=== PATIENT | male | born 1995 | race Caucasian/White ===

== ENCOUNTER → 2021-02-07 17:50 | Outpatient (CLI) | payer BC, SELFPAY | PROVIDERS: Visit Provider Nurse Practitioner | DX: U07.1 COVID-19 (principal) | CPT/HCPCS: C9803; U0003; U0005 ==

== ENCOUNTER 2022-03-15 14:27 | Emergency (ER) | payer BC, SELFPAY ==
[2022-03-15 14:35] VITALS: BP 141/86; PULSE 112; RESP 19; TEMP 37.6; O2SAT 98; BMI 22.9
--- NOTE | 2022-03-15 15:17 | EXP.UTC ---
Discharge Plan Disposition Patient Disposition: Home, Self-Care Condition: Good Referrals Follow up/Referrals: Provider,Referral, [Primary Care Provider] - See instructions Activity Restrictions/Add. Instructions Additional Instructions/Restrictions: *Monitor Temp, Over the counter Motrin or Tylenol as directed/as needed Tylenol every 4 hours and Motrin every 6 hours (as long as your family doctor has told you that you can take it) for fever or pain. and straight to ER if unable to lower temp less than 101.0 after medication given *Warm salt water gargles may help to soothe the throat *Throat Lozenges? *Warm fluids like tea with honey may help to soothe the throat? *Sleep elevated *Humidifier/Vaporizer Your throat swab was sent for culture. Those results are typically sent to your primary care. Be sure to follow up in 2-3 days with your family doctor/primary care physician if no improvement so they can review those result and treat if necessary. If you don?t have a primary care doctor, I recommend you get one but in the mean time, you will have to return to a walk in clinic Follow up IMMEDIATELY for new or worsening symptoms or no Noticeable improvement over the next 48-72 hours. 911 for difficulty breathing or swallowing You were tested for today for Upper Respiratory Panel with COVID19 your test result should be back in the next 24-48 hours, you may Check your results on the [facility] [employer] [facility] Portal Clinical Impressions Clinical Impression: Viral syndrome Stand Alone Forms Stand Alone Forms: Work/School Release Instructions Patient Instructions: DI for Viral Syndrome Discharge ED Provider: Yesika Greene [facility] [place] General Stated complaint: fever,chills,body aches Mode of Arrival: Ambulatory Source of Information: Patient Limitations: No Limitations Time Seen by Provider: 03/15/22 15:17 Description of Symptoms (Recalled from Triage Doc. by RN): PATIENT C/O HEADACHE, CHILLS, AND BODY ACHES SINCE THIS MORNING HEENT Symptoms (Recalled from RN notes): Yes Resp Symptoms (Recalled from RN notes): No Skin Symptoms (Recalled from RN notes): No MS Symptoms (Recalled from RN notes): No Functional Status (Recalled from RN notes): WNL History of Present Illness Provider Complaint: Patient states that he had flu about a month ago States that he woke up this morning with low grade fever, chills, and bodyaches and then started with headache States that feels like he did when he had the flu so he came in to get checked Related Data Allergies Allergy/AdvReac Type Severity Reaction Status Date / Time No Known Allergies Allergy Verified 03/15/22 14:54 Worker's Comp Is this a Worker's Comp case?: No [facility] Disclaimer: The information contained in this section may have been updated after the patient was seen, as this information can be updated by other users. Surgical History (Updated 03/15/22 @ 14:54 by Erin Ruiz RN) History of appendectomy Social History (Updated 03/15/22 @ 14:54 by Erin Ruiz RN) Smoking Status: Unknown if ever smoked alcohol intake: never current occupational status: employed Travel in the last 8 weeks: None ROS Obtained: Yes All systems reviewed & no additional complaints except as documented and Yes Systems reviewed as appropriate & no additional complaints except as documented Constitutional Constitutional: Reports system reviewed and no additional complaints, except as documented, Reports as per HPI, Reports body ache, Reports chills, Reports fever(s) and Reports headache(s) ENT Ears, Nose, Mouth, and Throat: Reports system reviewed and no additional complaints, except as documented, Reports as per HPI and Reports headache(s) Cardiovascular Cardiovascular: Reports system reviewed and no additional complaints, except as documented and Reports as per HPI Respiratory Respiratory: Reports system reviewed and no additional complaints, except as
[2022-03-15 15:32] LABS: UTC Strep Screen (Rapid) Negative (Negative)
[2022-03-15 15:45] VITALS: BP 141/86; PULSE 112; RESP 19; TEMP 37.6; O2SAT 98
[2022-03-15 16:43] LABS: Influenza A, PCR Not Detected (NotDetected); Influenza B, PCR Not Detected (NotDetected)
[2022-03-15 18:13] LABS: Coronavirus 19, PCR Detected (NotDetected)
== END 2022-03-15 15:47 | disposition home or self-care (01) ==
PROVIDERS: Emergency Provider Nurse Practitioner
DX: R50.9 Fever, unspecified (principal); R52 Pain, unspecified; B34.9 Viral infection, unspecified
CPT/HCPCS: 87880; 99212; C9803; G0463; U0003; U0005

== ENCOUNTER 2022-11-01 21:31 | Observation (INO) | payer BC, SELFPAY ==
--- NOTE | 2022-11-01 21:33 | ECG_ITS ---
APPROVED REPORT Exam: Resting ECG HR:90 bpm ECG Measurements Heart Rate 90 AXES DE 133 P 76 QRSd 103 QRS 53 QT 335 T 60 QTc 383 Conclusion SINUS RHYTHM WITH SINUS ARRHYTHMIA Incomplete RBBB Left atrial abnormality BORDERLINE ECG UNCONFIRMED REPORT Electronically signed by : Endy Flowers MD 11/03/2022 07:35:35
[2022-11-01 21:40] VITALS: BP 137/85; PULSE 72; RESP 24; TEMP 36.7; O2SAT 100; BMI 22.9
--- NOTE | 2022-11-01 21:41 | CT_ITS ---
PROCEDURE INFORMATION: Exam: CTA Chest With Contrast CTA Abdomen and Pelvis With Contrast Exam date and time: 11/01/2022 9:55 PM Age: 27 years old Clinical indication: Pain; Chest pressure; Additional info: Chest pain rad to neck and abdomen TECHNIQUE: Imaging protocol: Computed tomographic angiography of the chest with contrast. Exam focused on the arteries. Computed tomographic angiography of the abdomen and pelvis with contrast. Exam focused on the arteries. 3D rendering (Not supervised by radiologist): MIP and/or 3D reconstructed images were created by the technologist. Radiation optimization: All CT scans at this facility use at least one of these dose optimization techniques: automated exposure control; mA and/or kV adjustment per patient size (includes targeted exams where dose is matched to clinical indication); or iterative reconstruction. Contrast material: ISOVUE; Contrast volume: 100 ml; Contrast route: INTRAVENOUS (IV); REPORTING DATA: Count of CT and Cardiac NM exams in prior 12 months: This patient has received 0 known CTs and 0 known cardiac nuclear medicine studies in the 12 months prior to the current study. COMPARISON: No relevant prior studies available. FINDINGS: VASCULATURE: Great vessels off aortic arch: There is a bovine configuration of the aortic arch. Pulmonary arteries: Normal. No pulmonary emboli. Aorta: See Great vessels off aortic arch finding. Celiac trunk and mesenteric arteries: No occlusion or significant stenosis. Renal arteries: No occlusion or significant stenosis. Right iliac arteries: No occlusion or significant stenosis. Left iliac arteries: No occlusion or significant stenosis. CHEST: Lungs: Nonspecific subpleural reticulation of the lung bases. Calcified granuloma in the peripheral right lower lobe (image 77 series 5). Pleural spaces: Unremarkable. No pneumothorax. No pleural effusion. Heart: Unremarkable. No cardiomegaly. No pericardial effusion. ABDOMEN AND PELVIS: Liver: There are low-density lesions in the liver which most likely reflect a combination of cysts and/or hemangiomas. The liver is otherwise unremarkable. Gallbladder and bile ducts: Unremarkable. No calcified stones. No ductal dilation. Pancreas: Unremarkable. No mass. No ductal dilation. Spleen: Unremarkable. No splenomegaly. Adrenal glands: Unremarkable. No mass. Kidneys and ureters: Unremarkable. No solid mass. No hydronephrosis. Stomach and bowel: Moderate distention of the stomach with ingested contents. Appendix: No evidence of appendicitis. Intraperitoneal space: Unremarkable. No free air. No significant fluid collection. Urinary bladder: There is moderate distention of the urinary bladder. Reproductive: Unremarkable as visualized. Lymph nodes: Unremarkable. No enlarged lymph nodes. Bones/joints: Unremarkable. No acute fracture. Soft tissues: Unremarkable. IMPRESSION: No evidence for dissection or aneurysm. No acute pathology identified in the chest, abdomen, or pelvis.
--- NOTE | 2022-11-01 21:44 | HMH.EDGENADL ---
Discharge Plan Disposition Patient Disposition: Admitted Chief Complaint: Chest Pain Clinical Impressions Clinical Impression: Chest pain, Abdominal pain Discharge ED Provider: Lukasz Valenzuela General Adult HPI General Chief complaint: Chest Pain Stated complaint: LUQ-chest pain Time Seen by Provider: 11/01/22 21:40 History of Present Illness HPI narrative: Patient is a 27-year-old male with no chronic medical conditions presents emergency department for evaluation of multiple complaints. Originally patient had chest pain that was radiating up into his shoulders, intermittently severe, however since then it is progressively traveled down the left side of his chest and is now in the left side of his abdomen. It is severe, intermittently stabbing quality. No vomiting or diarrhea. No other acute complaints at this time. Related Data Allergies Allergy/AdvReac Type Severity Reaction Status Date / Time No Known Allergies Allergy Verified 11/01/22 21:47 [facility] Disclaimer: The information contained in this section may have been updated after the patient was seen, as this information can be updated by other users. Surgical History (Updated 03/15/22 @ 14:54 by Erin Ruiz RN) History of appendectomy Social History (Updated 03/15/22 @ 15:37 by Yesika Greene APRN) Smoking Status: Never smoker alcohol intake: never current occupational status: employed Travel in the last 8 weeks: None ROS Obtained: Yes Systems reviewed as appropriate & no additional complaints except as documented Physical Exam General General appearance: alert and in distress Head Head exam: atraumatic and normocephalic Eye Eye exam: Present PERRL and EOMI ENT ENT exam: Present mucous membranes moist Neck Neck exam: Present normal inspection Chest Chest inspection: Present normal inspection and symmetric chest wall rise Respiratory Respiratory exam: Present normal lung sounds bilaterally; Absent respiratory distress Cardiovascular Cardiovascular exam: Present regular rate and normal rhythm Abdominal Exam Abdominal exam: Present soft, tenderness (Generalized, severe left upper quadrant) and guarding (Voluntary) Extremities Exam Extremities exam: Present normal inspection Neurological Exam Neurological exam: Present alert Psychiatric Psychiatric exam: Present normal affect Skin Skin exam: Present warm and dry Medical Decision Making Adam Inquiry Pt receiving controlled substance: No Vital Signs: 11/01/22 21:40 Temperature 98.1 F Temperature Source Oral Pulse Rate [Left] 72 Respiratory Rate 24 Blood Pressure [Right Arm] 137/85 Blood Pressure Mean [Right Arm] 102 Blood Pressure Source [Right Arm] Automatic Cuff Blood Pressure Position [Right Arm] Sitting 02 Sat by Pulse Oximetry 100 Lab Data Lab Results 11/01/22 21:34: WBC 10.7, RBC 5.17, Hgb 14.8, Hct 45.0, MCV 87.1, MCH 28.7, MCHC 32.9, RDW 12.4, Plt Count 333, MPV 6.9 L, Neut % (Auto) 57.8, Lymph % (Auto) 30.7, [place] % (Auto) 9.4 H, Eos % (Auto) 1.4, Baso % (Auto) 0.6, Neut # (Auto) 6.2, Lymph # (Auto) 3.3, [place] # (Auto) 1.0, Eos # (Auto) 0.2, Baso # (Auto) 0.1, Sodium 142, Potassium 4.0, Chloride 102, Carbon Dioxide 30, Anion Gap 14.0, BUN 14, Creatinine 1.10, Estimated Creat Clear 104, Estimated GFR 80, Est GFR ( Amer) 97, Glucose 108 H, Calcium 8.8, Total Bilirubin 0.3, AST 26, ALT 20, Alkaline Phosphatase 57, Troponin I < 0.01, Total Protein 7.7, Albumin 4.4, Globulin 3.3 H, Albumin/Globulin Ratio 1.3, Lipase 69 11/01/22 21:34 11/01/22 21:34 Orders (Tests/Meds): ED MEDICATIONS Generic Name Dose Route Start Last Admin Trade Name Freq PRN Reason Stop Dose Admin Acetaminophen 650 mg 11/01/22 23:56 Acetaminophen 325mg Tab PO 12/01/22 23:55 Q4HP PRN Fever or Mild Pain (1-3) Lactated Ringer's 1,000 mls @ 50 mls/hr 11/01/22 23:45 Lactated Ringer's 1000 Ml Bag IV 12/01/22 23:44
[2022-11-01 21:47] LABS: Basophils # 0.1 K/mm3 (0-0.2); Basophils % 0.6 % (0.1-2.0); Eosinophils # 0.2 K/mm3 (0.0-0.4); Eosinophils % 1.4 % (0.1-12.0); Hemoglobin 14.8 g/dL (14.1-18.0); Lymphocytes # 3.3 K/mm3 (0.7-4.5); Lymphocytes % 30.7 % (10-50); Mean Corpuscular HGB Conc 32.9 g/dL (31.8-35.4); Mean Corpuscular Hemoglobin 28.7 pg (27.0-31.2); Mean Corpuscular Volume 87.1 fl (80-94); Mean Platelet Volume 6.9 fl (7.4-10.4); Monocytes % 9.4 % (1.7-9.3); Neutrophils # 6.2 K/mm3 (1.8-7.8); Neutrophils % 57.8 % (37.0-80.0); Platelet Count 333 K/mm3 (142-424); Red Blood Count 5.17 M/mm3 (4.60-6.20); Red Cell Distribution Width 12.4 % (11.5-17.5); White Blood Count 10.7 K/mm3 (4.8-10.8)
--- NOTE | 2022-11-01 21:49 | PC.NURSE ---
Patient went to CT at this time.
[2022-11-01 21:54] LABS: Chloride 102 mmol/L (98-107); Sodium 142 mmol/L (136-145)
[2022-11-01 21:56] LABS: Blood Urea Nitrogen 14 mg/dl (9-20); Creatinine Clearance Estimated 104 mL/min (50-200); Estimated Glomerular Filt Rate 80 ml/min (>60); GFR (African American) 97 ML/MIN (>60)
[2022-11-01 21:57] LABS: Alanine Aminotransferase 20 U/L (12-78); Albumin Level 4.4 g/dl (3.5-5.0); Albumin/Globulin Ratio 1.3 (1.1-1.8); Alkaline Phosphatase 57 U/L (38-126); Aspartate Amino Transferase 26 U/L (17-59); Bilirubin,Total 0.3 mg/dl (0.2-1.3); Calcium 8.8 mg/dl (8.4-10.2); Carbon Dioxide 30 mmol/L (22.0-30.0); Globulin 3.3 g/dL (1.3-3.2); Glucose 108 mg/dl (74-100); Lipase 69 U/L (23-300); Total Protein,Serum 7.7 g/dl (6.3-8.2)
--- NOTE | 2022-11-01 21:59 | PC.NURSE ---
patient back in room from CT at this time.
--- NOTE | 2022-11-01 21:59 | PC.NURSE ---
Rounded on patient, no needs voiced at this time.
[2022-11-01 22:07] VITALS: BP 111/72; PULSE 82; RESP 13; O2SAT 97
[2022-11-01 22:15] LABS: Troponin I < 0.01 ng/ml (0.00-0.034)
[2022-11-01 22:30] VITALS: BP 119/84; PULSE 76; RESP 19; O2SAT 98
[2022-11-01 23:00] VITALS: BP 111/69; PULSE 72; RESP 16; O2SAT 97
[2022-11-01 23:30] VITALS: BP 105/61; PULSE 71; RESP 16; O2SAT 97
--- NOTE | 2022-11-01 23:44 | PC.NURSE ---
notified house of admit. Cleve mortensen, intractable abd pain; jacky baeza
[2022-11-01 23:47] LABS: Microscopic, Urine URINE MICROSCOPIC (MICROSCOPIC)
[2022-11-02 00:19] LABS: Appearance,Urine CLEAR (Clear); Bilirubin,Urine Negative (Negative); Blood, Urine Negative (Negative); Color,Urine YELLOW (Yellow); Glucose,Urine (UA) Negative (Negative); Ketones,Urine Negative (Negative); Leukocyte Esterase,Urine Negative (Negative); Nitrate,Urine Negative (Negative); Protein,Urine Negative (Negative); Urobilinogen,Urine 0.2 EU/dl (0.2)
[2022-11-02 00:27] LABS: RBC,Urine Occasional #/hpf (0-3)
--- NOTE | 2022-11-02 00:30 | PC.NURSE ---
0025 received phone report from Hoa rn/ED nurse. 27 yo male . diagnosis left upper quadrant abdominal pain.
[2022-11-02 00:33] VITALS: BP 105/61; PULSE 72; RESP 19; TEMP 36.6
[2022-11-02 01:00] VITALS: O2SAT 97
--- NOTE | 2022-11-02 01:02 | PC.NURSE ---
Patient arrived to floor via wheelchair at 01:00.
[2022-11-02 01:04] LABS: Troponin I < 0.01 ng/ml (0.00-0.034)
--- NOTE | 2022-11-02 01:21 | PC.NURSE ---
$1210, A POCKET KNIFE, AND A FLASHLIGHT LOCKED IN DRAWER AT THIS TIME
[2022-11-02 01:26] VITALS: BP 124/54; PULSE 68; RESP 18; TEMP 36.7; O2SAT 98; BMI 22.6
[2022-11-02 03:36] LABS: Troponin I < 0.01 ng/ml (0.00-0.034)
[2022-11-02 04:00] VITALS: BMI 22.6
--- NOTE | 2022-11-02 04:59 | PC.NURSE ---
HAS SLEPT SOUNDLY SINCE MEDS RECEIVED IN THE ED. DENIES PAIN. DENIES N/V/D. RESTING IN BED AT THIS TIME.
[2022-11-02 07:47] VITALS: BP 99/52; PULSE 72; RESP 16; TEMP 36.9; O2SAT 99
--- NOTE | 2022-11-02 10:21 | HMH.PHAINT1 ---
Pharmacy Intervention Comments: MEDICATION RECONCILIATION COMPLETE USING EXTERNAL PHARMACY FILL HISTORY.
--- NOTE | 2022-11-02 10:33 | EXP.HP ---
History of Present Illness *History of present illness: This dictation is actually a COMBINATION H&P and DISCHARGE SUMMARY: This 27-year-old white male developed pain in the left chest area with radiation up into the upper chest and in the left neck. The symptoms started a day prior to admission. There was no specific injury. He has not been exercising or causing any unusual straining in the abdomen chest region. Significant in the past history is Leiden factor V and a family history of blood clots. Also significant in the history is the fact that the patient has had COVID twice. The last episode was March 2022. He states that his cases of COVID were mild. He has a history of appendectomy. He was evaluated in the emergency room last evening and was admitted. He had CTA evaluation of the chest and abdomen. There were no significant findings. There was no evidence of pulmonary emboli. On exam today he indicates a fairly specific area in the lower rib cage area. He states he feels better and slept well through the night. [facility] Disclaimer: The information contained in this section may have been updated after the patient was seen, as this information can be updated by other users. Medical History (Updated 11/02/22 @ 10:59 by Diane Lorenzo MD) Costochondritis, acute Factor V Leiden Pleuritis Surgical History History of appendectomy Social History (Updated 11/02/22 @ 01:46 by Ilana Mena RN) Smoking Status: Never smoker alcohol intake: never substance use type: marijuana current occupational status: employed Travel in the last 8 weeks: None Review of Systems Review of Systems Review of systems:: pertinent systems reviewed and negative unless documented below Constitutional Constitutional: Reports system reviewed and no additional complaints, except as documented, Denies body ache(s), Denies chills, Denies fever(s), Denies lethargy and Denies weakness Eyes Eyes: Reports system reviewed and no additional complaints, except as documented ENT Ears, Nose, Mouth, and Throat: Reports system reviewed and no additional complaints, except as documented, Reports neck pain and Denies vertigo *Cardiovascular Cardiovascular: Reports chest pain, Reports chest pain at rest, Reports chest pain with activity (Notes the pain when he takes deep breaths or twists his upper body.), Denies dyspnea, Denies dyspnea on exertion, Denies irregular heart rhythm, Denies leg edema, Denies lightheadedness, Denies orthopnea, Denies palpitations and Denies syncope *Respiratory Respiratory: Reports system reviewed and no additional complaints, except as documented, Denies chest congestion, Denies cough, Denies dyspnea, Denies dyspnea on exertion, Denies excessive phlegm production, Denies hemoptysis, Reports pain on inspiration, Reports pain with cough, Denies stridor and Denies wheezing *Gastrointestinal Gastrointestinal: Reports abdominal pain (The ER record emphasizes left upper abdominal pain Instead of chest) *Genitourinary Genitourinary: Reports system reviewed and no additional complaints, except as documented *Musculoskeletal Musculoskeletal: Reports system reviewed and no additional complaints, except as documented, Reports back pain, Denies deformity, Denies joint swelling, Denies muscle weakness, Denies myalgias, Reports neck pain and Denies tingling Integumentary/Breasts Skin/Breast: Reports system reviewed and no additional complaints, except as documented *Neurologic Neurologic: Reports system reviewed and no additional complaints, except as documented, Denies syncope, Denies tingling, Denies vertigo and Denies weakness Psychiatric Psychiatric: Reports system reviewed and no additional complaints, except as documented, Denies depression and Denies panic attacks Endocrine Endocrine: Reports system reviewed and no additional complaints, except as documented and Denies palp
--- NOTE | 2022-11-02 11:03 | EXP.HPDC ---
General Admission date:: 11/02/22 *History of present illness: PLEASE SEE H&P WHICH IS ACTUALLY A DOCUMENTATION OF THE ENTIRE HOSPITAL COURSE. [facility] Disclaimer: The information contained in this section may have been updated after the patient was seen, as this information can be updated by other users. Medical History (Updated 11/02/22 @ 10:59 by Diane Lorenzo MD) Costochondritis, acute Factor V Leiden Pleuritis Surgical History History of appendectomy Social History (Updated 11/02/22 @ 01:46 by Ilana Mena RN) Smoking Status: Never smoker alcohol intake: never substance use type: marijuana current occupational status: employed Travel in the last 8 weeks: None Review of Systems Constitutional Constitutional: Denies weakness ENT Ears, Nose, Mouth, and Throat: Denies vertigo *Cardiovascular Cardiovascular: Denies syncope *Musculoskeletal Musculoskeletal: Denies tingling *Neurologic Neurologic: Reports system reviewed and no additional complaints, except as documented, Denies syncope, Denies tingling, Denies vertigo and Denies weakness Exam Data for Last 24 hours Vital signs and Labs for Last 24 Hours: Temp Pulse Resp BP Pulse Ox O2 Del Method 98.4 F 72 16 99/52 L 99 Room Air 11/02/22 07:47 11/02/22 07:47 11/02/22 07:47 11/02/22 07:47 11/02/22 07:47 11/02/22 09:00 Laboratory Results - last 24 hr 11/01/22 21:34: WBC 10.7, RBC 5.17, Hgb 14.8, Hct 45.0, MCV 87.1, MCH 28.7, MCHC 32.9, RDW 12.4, Plt Count 333, MPV 6.9 L, Neut % (Auto) 57.8, Lymph % (Auto) 30.7, [place] % (Auto) 9.4 H, Eos % (Auto) 1.4, Baso % (Auto) 0.6, Neut # (Auto) 6.2, Lymph # (Auto) 3.3, [place] # (Auto) 1.0, Eos # (Auto) 0.2, Baso # (Auto) 0.1, Sodium 142, Potassium 4.0, Chloride 102, Carbon Dioxide 30, Anion Gap 14.0, BUN 14, Creatinine 1.10, Estimated Creat Clear 104, Estimated GFR 80, Est GFR ( Amer) 97, Glucose 108 H, Calcium 8.8, Total Bilirubin 0.3, AST 26, ALT 20, Alkaline Phosphatase 57, Troponin I < 0.01, Total Protein 7.7, Albumin 4.4, Globulin 3.3 H, Albumin/Globulin Ratio 1.3, Lipase 69 11/01/22 23:44: Urine Color Yellow, Urine Appearance Clear, Urine pH 7.0, Ur Specific [place] 1.010, Urine Protein Negative, Urine Glucose (UA) Negative, Urine Ketones Negative, Urine Blood Negative, Urine Nitrate Negative, Urine Bilirubin Negative, Urine Urobilinogen 0.2, Ur Leukocyte Esterase Negative, Urine RBC Occasional, Urine WBC None, Ur Squamous Epith Cells None, Urine Bacteria None 11/02/22 00:25: Troponin I < 0.01 11/02/22 03:00: Troponin I < 0.01 I & O for Last 24 hours: Intake & Output 10/30/22 10/31/22 11/01/22 11/02/22 11:59 11:59 11:59 11:59 Intake Total 1219 / 1219 Output Total 0 / 0 Balance 1219 / 1219 Weight 158 lb 4 oz *Routine HEENT Exam Head: Present normocephalic Eye: Present PERRL ENT: Present mucous membranes moist *Routine Respiratory Exam Respiratory: Present CTA bilaterally *Routine Cardiovascular Exam Cardiovascular: Present RRR *Routine Abdominal Exam Abdominal: Present soft *Routine Rectal Exam Rectal:: deferred *Routine Genitalia Exam Genitalia:: deferred Meds Home Medications and Allergies Home Medications Medication Instructions Recorded Confirmed Type celecoxib 200 mg capsule 200 mg PO DAILY PLEURITIS #30 caps 11/02/22 Rx methylprednisolone 4 mg tablets in 4 mg PO DAILY #21 tabs 11/02/22 Rx a dose pack (Medrol (Dennys)) New Prescriptions to Start Prescriptions: celecoxib Diane Lorenzo methylprednisolone [Medrol (Dennys)] Diane Lorenzo Allergies Allergy/AdvReac Type Severity Reaction Status Date / Time No Known Allergies Allergy Verified 11/01/22 21:47 Hospital Course Hospital Course Hospital Course: SEE H&P/DISCHARGE COMBO. Results Data Completed and Pending Labs on day of discharge: Labs f
--- NOTE | 2022-11-02 11:33 | P.CONPHA_ITS ---
Pharmacy Intervention Comments: DISCHARGE MEDICATION COUNSELING PROVIDED. DISCUSSED STARTING THE FOLLOWING: -CELEBREX (NSAID, DAILY, TAKE WITH FOOD, UPSET STOMACH POSSIBLE, AVOID IBUPROFEN OR NAPROXEN IF SOMETHING ELSE NEEDED FOR PAIN THEY ARE SIMILAR). -MEDROL (STEROID, DOSE JENNIFER WITH INSTRUCTIONS ON THE BACK, TAKE WITH FOOD, TAKE I N THE MORNING, MAY CAUSE UPSET STOMACH, INSOMNIA) PATIENT VERBALIZED NO QUESTIONS AT THIS TIME.
--- NOTE | 2022-11-02 11:41 | PC.NURSE ---
pt has been discahrged from the facility. took all belongigns with him including wallet that was locked up. Voiced understanding of all dc education and follow up appts. meds sent to [facility]
--- NOTE | 2022-11-04 15:00 | CARE MANAGER ---
Contacted patient related to hospital discharge. He is going to call Dr. Lorenzo's office regarding a follow up appointment and picked up his new medications. He denies questions or concerns. SUDEEP Zarco
== END 2022-11-02 11:40 | disposition home or self-care (01) ==
LOC: ER 22:17 → 2ND 23:56
PROVIDERS: Admitting Provider Family Medicine; Emergency Provider Emergency Medicine; PCP Family Medicine; Visit Provider Family Medicine
DX: M94.0 Chondrocostal junction syndrome [Tietze] (principal); R09.1 Pleurisy; D68.51 Activated protein C resistance; Z86.16 Personal history of COVID-19
CPT/HCPCS: 36415; 71275; 74174; 80053; 81001; 83690; 84484; 85025; 93005; 99285; G0378; J0131; Q9967

== ENCOUNTER 2023-05-27 18:58 | Emergency (ER) | payer BC, SELFPAY ==
[2023-05-27 19:25] VITALS: BP 114/68; PULSE 73; RESP 18; TEMP 36.6; O2SAT 99; BMI 22.3
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
--- NOTE | 2023-05-27 19:27 | ED_ITS ---
Discharge Plan Disposition Patient Disposition: Home, Self-Care Condition: Good Prescriptions Prescriptions: New cephalexin 500 mg capsule 500 mg PO QID Qty: 40 0RF Referrals Follow up/Referrals: Diane Lorenzo MD [Primary Care Provider] - See instructions Activity Restrictions/Add. Instructions Additional Instructions/Restrictions: Keep the wound clean and dry. Keep a dressing on it if you are going to be getting it dirty. Watch the wound for signs of infection, such as redness, swelling, drainage, fever. etc. Take tylenol or ibuprofen for pain. Follow up with your regular doctor. Return in 10 days to have the sutures removed. GO TO THE ER FOR ANY WORSENING SYMPTOMS OR CONCERNS. Clinical Impressions Clinical Impression: Laceration of left hand, Need for Tdap vaccination Instructions Patient Instructions: DI for Laceration Repair -- Simple, Cephalexin, Tetanus, Diphtheria, Pertussis (Tdap) Vaccine Discharge ED Provider: Yusuf Castellanos [facility] General Stated complaint: [id number] LT hand lac Time Seen by Provider: 05/27/23 19:27 History of Present Illness Provider Complaint: He states that he was using a hammer to hit a piece of metal earlier today when he slipped and hit his left hand. This caught part of his hand between the hammer and the piece of metal. He has a laceration on the medial aspect of his hand near the base of his index finger. His tetanus immunization is not up to date. Related Data Previous Rx's Medication Instructions Recorded cephalexin 500 mg capsule 500 mg PO QID #40 caps 05/27/23 Allergies Allergy/AdvReac Type Severity Reaction Status Date / Time No Known Allergies Allergy Verified 05/27/23 19:32 [facility] Disclaimer: The information contained in this section may have been updated after the patient was seen, as this information can be updated by other users. Medical History (Updated 05/27/23 @ 20:36 by Yusuf Castellanos APRN) Factor V Leiden Pleuritis Costochondritis, acute Viral syndrome Surgical History History of appendectomy Social History Smoking Status: Never smoker alcohol intake: never substance use type: marijuana current occupational status: employed Travel in the last 8 weeks: None ROS Obtained: Yes All systems reviewed & no additional complaints except as documented Constitutional Constitutional: Denies chills and Denies fever(s) Eyes Eyes: Denies eye discharge ENT Ears, Nose, Mouth, and Throat: Denies dizziness, Denies otalgia and Denies sore throat Cardiovascular Cardiovascular: Denies chest pain Respiratory Respiratory: Denies shortness of breath, Denies chest congestion, Denies cough, Denies stridor and Denies wheezing Gastrointestinal Gastrointestingal: Denies nausea or vomiting Musculoskeletal Musculoskeletal: Reports system reviewed and no additional complaints, except as documented and Denies arthralgias Integumentary/Breasts Skin/Breast: Reports as per HPI and Reports wounds Neurologic Neurologic: Denies dizziness and Denies paresthesias Allergic/Immunologic Allergic/Immunologic: Denies wheezing Physical Exam General General appearance: alert and in no apparent distress Head Head exam: atraumatic, normocephalic and normal inspection Eye Eye exam: Present normal appearance, PERRL and EOMI ENT ENT exam: Present normal exam, normal oropharynx, mucous membranes moist, TM's normal bilaterally and normal external ear exam Neck Neck exam: Present normal inspection, full ROM and trachea midline; Absent meningismus or lymphadenopathy Chest Chest inspection: Present normal inspection and symmetric chest wall rise; Absent tenderness Respiratory Respiratory exam: Present normal lung sounds bilaterally; Absent respiratory distress Cardiovascular Cardiovascular exam: Present regular rate and normal rhythm; Absent JVD Abdominal Exam Abdominal exam: Present soft and normal bowel sounds; Absent distention, tenderness or guarding Extremities Exam Extremities exam: Present normal inspection, full ROM and normal capillary refill; Absent calf tenderness Back Exam Back exam: Present normal inspection; Absent tenderness Neurological Exam Neurological exam: Present alert and oriented X3 Psychiatric Psychiatric exam: Present normal affect and normal mood Skin Skin exam: Present other (there is a 1.5 cm linear laceration on the medial aspect of his left hand near the base of his index finger. no deep tissue damage or tendon damage, no foreign body, he has good 2 point touch discrimination distal to the wound. ) Lymphatic Lymphatic Findings: no adenopathy Medical Decision Making Medical Records Medical records reviewed: No I reviewed the patient's medical records. Adam Inquiry Pt receiving controlled substance: No Radiology Data #1: Image(s): Hand Image Reviewed: Yes I reviewed the patient's radiology image and Yes I have reviewed radiologist's interpretation Preliminary Findings: No Fracture Seen
[2023-05-27] MEDS: TET/DIPHTH/PERT-ADULT 0.5ML SYRINGE 0.5 ML IM (20:10)
--- NOTE | 2023-05-27 20:33 | PC.NURSE ---
Placed 4 stitches in the left hand
[2023-05-27 20:40] VITALS: BP 114/68; PULSE 73; RESP 18; TEMP 36.6; O2SAT 99
== END 2023-05-27 20:40 | disposition home or self-care (01) ==
PROVIDERS: Emergency Provider Nurse Practitioner Family; PCP Family Medicine
DX: S61.412A Laceration without foreign body of left hand, initial encounter (principal); W27.8XXA Contact with other nonpowered hand tool, initial encounter; D68.51 Activated protein C resistance; Z23 Encounter for immunization
CPT/HCPCS: 73130; 90471; 90715; 96372; 99212; 99214; G0463